=== PATIENT | female | born 1990 | race Caucasian/White ===

== ENCOUNTER 2016-06-16 22:15 | Observation (INO) | payer BC, MEDICAID ==
[2016-06-16 23:39] VITALS: BP 117/72
[2016-06-17] MEDS ORDERED: ONDANSETRON 2MG/ML, 2ML IVPush PRN (00:30)
[2016-06-17] MEDS ORDERED: ONDANSETRON 2MG/ML, 2ML ONE (00:52)
[2016-06-17] MEDS: D5%-LACTATED RINGERS 1,000 ML IV SCH ×2 (01:05→03:30)
[2016-06-17 01:14] LABS: ASPARTATE AMINO TRANSFERASE 13 U/L (15-37); BLOOD UREA NITROGEN 6 mg/dL (7-18)
[2016-06-17] MEDS ORDERED: ONDA4TAB7 PO ×2 (05:21→05:22)
[2016-06-17 06:17] LABS: RAPID INFLUENZA A Negative (Negative); RAPID INFLUENZA B Negative (Negative)
== END 2016-06-17 06:25 | disposition home or self-care (01) ==
LOC: LDOP 22:15 → LDIP 06-17 00:26
PROVIDERS: ADMIT Obstetrics & Gynecology Gynecology; ATTEND Obstetrics & Gynecology Gynecology
DX: O21.9 Vomiting of pregnancy, unspecified (principal); O99.342 Other mental disorders complicating pregnancy, second trimester; F41.9 Anxiety disorder, unspecified; F31.9 Bipolar disorder, unspecified; Z3A.20 20 weeks gestation of pregnancy; Z87.891 Personal history of nicotine dependence
CPT/HCPCS: 36415; 76805; 80053; 81001; 85025; 87086; 87400; 96361; 96374; G0378; J2405; 59025; 96360; 96375; 99211; G0463; J7121

== ENCOUNTER 2016-07-20 00:31 | Emergency (ER) | payer BC, MEDICAID, OTHER ==
[~2016-07-20] VITALS: Ht 170.2 cm; Wt 95.0 kg
[~2016-07-20 00:31] MED LIST: ONDA4TAB7 PO
[2016-07-20 00:33] VITALS: BP 113/75
== END 2016-07-20 02:52 | disposition home or self-care (01) ==
LOC: ED 02:49
DX: O9A.212 Injury, poisoning and certain other consequences of external causes complicating pregnancy, second trimester (principal); S80.02XA Contusion of left knee, initial encounter; S80.01XA Contusion of right knee, initial encounter; S50.12XA Contusion of left forearm, initial encounter; Z3A.26 26 weeks gestation of pregnancy; W01.0XXA Fall on same level from slipping, tripping and stumbling without subsequent striking against object, initial encounter; Y93.89 Activity, other specified; Y92.89 Other specified places as the place of occurrence of the external cause; Y99.0 Civilian activity done for income or pay
CPT/HCPCS: 99284

== ENCOUNTER 2016-08-12 08:29 | Observation (INO) | payer BC, MEDICAID ==
[~2016-08-12] VITALS: Ht 170.2 cm; Wt 99.0 kg
[2016-08-12 09:14] VITALS: BP 115/68
[2016-08-12] MEDS ORDERED: RHOGAM FROM BLOOD BANK 1 NOTE EA IM/IV ONE (09:30)
== END 2016-08-12 13:20 | disposition home or self-care (01) ==
LOC: LDOP 08:29 → LDIP 13:17
PROVIDERS: ADMIT Obstetrics & Gynecology Gynecology; ATTEND Obstetrics & Gynecology Gynecology
DX: O46.93 Antepartum hemorrhage, unspecified, third trimester (principal); Z3A.28 28 weeks gestation of pregnancy
CPT/HCPCS: 36415; 59025; 76815; 85461; 86850; 86900; 89060; 96372; G0378; J2790; Q0114

== ENCOUNTER 2016-08-19 20:26 | Outpatient (CLI) | payer BC, MEDICAID ==
[~2016-08-19] VITALS: Ht 170.2 cm; Wt 100.0 kg
[2016-08-19 20:41] VITALS: BP 114/70
== END 2016-08-19 21:45 | disposition home or self-care (01) ==
LOC: LDOP 20:26
PROVIDERS: ATTEND Obstetrics & Gynecology Gynecology
DX: O26.893 Other specified pregnancy related conditions, third trimester (principal); O99.343 Other mental disorders complicating pregnancy, third trimester; R10.9 Unspecified abdominal pain; R19.7 Diarrhea, unspecified; M54.9 Dorsalgia, unspecified; F32.9 Major depressive disorder, single episode, unspecified; Z3A.30 30 weeks gestation of pregnancy
CPT/HCPCS: 59025; 81001; 87086; 99211; G0463

== ENCOUNTER 2016-10-01 17:43 | Outpatient (CLI) | payer BC, MEDICAID ==
[~2016-10-01] VITALS: Ht 170.2 cm; Wt 100.0 kg
[2016-10-01] MEDS ORDERED: PREN1TAB60 PO (18:00)
[2016-10-01 18:22] VITALS: BP 118/72
[2016-10-01 18:37] LABS: HEMOGLOBIN 12.2 g/dL (11.7-16.4); WHITE BLOOD COUNT 14.2 x10^3/uL (3.4-10)
[2016-10-01 18:47] LABS: ASPARTATE AMINO TRANSFERASE 14 U/L (15-37); BLOOD UREA NITROGEN 6 mg/dL (7-18)
== END 2016-10-01 19:40 | disposition home or self-care (01) ==
LOC: LDOP 17:43
PROVIDERS: ATTEND Obstetrics & Gynecology Gynecology
DX: O26.893 Other specified pregnancy related conditions, third trimester (principal); O21.9 Vomiting of pregnancy, unspecified; O99.343 Other mental disorders complicating pregnancy, third trimester; R51 Headache; R42 Dizziness and giddiness; H53.8 Other visual disturbances; F32.9 Major depressive disorder, single episode, unspecified; Z3A.35 35 weeks gestation of pregnancy
CPT/HCPCS: 36415; 59025; 80053; 81001; 82570; 84156; 84550; 85025; 99211; G0463

== ENCOUNTER 2016-10-08 15:53 | Outpatient (CLI) | payer BC, MEDICAID ==
[~2016-10-08] VITALS: Ht 170.2 cm; Wt 100.5 kg
[~2016-10-08 15:53] MED LIST changes: +PREN1TAB60 PO
[2016-10-08 16:21] VITALS: BP 125/80
== END 2016-10-08 18:00 | disposition home or self-care (01) ==
LOC: LDOP 15:53
PROVIDERS: ATTEND Obstetrics & Gynecology Gynecology
DX: O26.893 Other specified pregnancy related conditions, third trimester (principal); O23.43 Unspecified infection of urinary tract in pregnancy, third trimester; O99.343 Other mental disorders complicating pregnancy, third trimester; F32.9 Major depressive disorder, single episode, unspecified; Z3A.36 36 weeks gestation of pregnancy
CPT/HCPCS: 59025; 81001; 87086; 99211; G0463

== ENCOUNTER 2016-10-19 09:03 | Outpatient (CLI) | payer BC, MEDICAID ==
[2016-10-19] MEDS ORDERED: LIDOCAINE 1%, 20ML ONE (10:23)
[2016-10-19] MEDS ORDERED: CEPH-368 PO (10:44)
== END 2016-10-19 11:31 | disposition home or self-care (01) ==
LOC: LDOP 09:03
PROVIDERS: ATTEND Obstetrics & Gynecology Gynecology
DX: O26.893 Other specified pregnancy related conditions, third trimester (principal); O62.9 Abnormality of forces of labor, unspecified; L02.416 Cutaneous abscess of left lower limb; R10.30 Lower abdominal pain, unspecified; Z3A.38 38 weeks gestation of pregnancy
CPT/HCPCS: 59025; 99211; G0463

== ENCOUNTER 2016-10-26 09:57 | Outpatient (CLI) | payer BC, MEDICAID ==
[~2016-10-26] VITALS: Ht 170.2 cm; Wt 106.8 kg
[~2016-10-26 09:57] MED LIST changes: +CEPH-368 PO
[2016-10-26 10:14] VITALS: BP 117/56
== END 2016-10-26 11:17 | disposition home or self-care (01) ==
LOC: LDOP 09:57
PROVIDERS: ATTEND Obstetrics & Gynecology Gynecology
DX: O42.92 Full-term premature rupture of membranes, unspecified as to length of time between rupture and onset of labor (principal); O99.343 Other mental disorders complicating pregnancy, third trimester; O23.43 Unspecified infection of urinary tract in pregnancy, third trimester; F32.9 Major depressive disorder, single episode, unspecified; Z3A.39 39 weeks gestation of pregnancy
CPT/HCPCS: 59025; 89060; 99211; G0463; Q0114

== ENCOUNTER 2016-10-28 10:09 | Inpatient (IN) | payer BC, MEDICAID ==
[~2016-10-28] VITALS: Ht 170.2 cm; Wt 106.8 kg
[2016-10-28] MEDS ORDERED: MISOPROSTOL 200 MCG TABLET ONE (10:26)
[2016-10-28] MEDS ORDERED: OXYTOCIN 30U/ 0.9% NaCL 500ML 500 ML ONE (10:26)
[2016-10-28] MEDS ORDERED: LIDOCAINE 1%, 20ML ONE (10:26)
[2016-10-28] MEDS ORDERED: OXYTOCIN 30U/ 0.9% NaCL 500ML 500 ML IV ONE (10:26)
[2016-10-28] MEDS ORDERED: NEWBORN KIT ONE (10:26)
[2016-10-28] MEDS ORDERED: FENTANYL PF 100 MCG/2ML IV PRN (10:30)
[2016-10-28] MEDS ORDERED: FENTANYL PF 100 MCG/2ML IVPush PRN (10:30)
[2016-10-28] MEDS ORDERED: TERBUTALINE 1 MG/ML, 1ML SQ PRN (10:30)
[2016-10-28] MEDS: LACTATED RINGERS 1,000 ML IV SCH ×3 (10:42→17:45)
[2016-10-28 10:51] LABS: HEMATOCRIT 37.5 % (34.6-47.8); HEMOGLOBIN 12.9 g/dL (11.7-16.4); WHITE BLOOD COUNT 14.3 x10^3/uL (3.4-10)
[2016-10-28 10:56] VITALS: BP 124/75
[2016-10-28] MEDS ORDERED: PLEASE ENTER HEIGHT AND WEIGHT MC SCH (11:00)
[2016-10-28] MEDS ORDERED: BUPIVACAINE/PF 0.25% ONE (11:26)
[2016-10-28] MEDS ORDERED: FENTANYL/BUPIV./NS/PF 250 ML EPIDCONT ONE (11:27)
[2016-10-28] MEDS ORDERED: FENTANYL/BUPIV./NS/PF 250 ML EPIDCONT SCH ×2 (11:28)
[2016-10-28] MEDS ORDERED: LACTATED RINGERS 1,000 ML IV SCH ×2 (11:28)
[2016-10-28] MEDS ORDERED: EPHEDRINE 50 MG/ML, 1ML IVPush PRN ×2 (11:30)
[2016-10-28] MEDS ORDERED: NALOXONE 0.4 MG/ML, 1ML IVPush PRN ×2 (11:30)
[2016-10-28] MEDS ORDERED: LACTATED RINGERS 1,000 ML IVBOLUS PRN ×2 (11:30)
[2016-10-28] MEDS ORDERED: FENTANYL PF 100 MCG/2ML ONE (11:33)
[2016-10-28] MEDS ORDERED: BUPIVACAINE 0.25% ONE (11:33)
[2016-10-28] MEDS ORDERED: OXYTOCIN 30U/ 0.9% NaCL 500ML 500 ML IV PRN (14:00)
[2016-10-28] MEDS ORDERED: MISOPROSTOL 200 MCG TABLET PR PRN (15:00)
[2016-10-28] MEDS ORDERED: MEASLES,MUMPS&RUBELLA VACC/PF 0.5 ML SQ PRN (15:00)
[2016-10-28] MEDS ORDERED: DOCUSATE 100 MG CAPSULE PO PRN (15:00)
[2016-10-28] MEDS ORDERED: ONDANSETRON 2MG/ML, 2ML IV PRN (15:00)
[2016-10-28] MEDS ORDERED: OXYcodone/APAP 5/325MG TABLET PO PRN ×2 (15:00)
[2016-10-28] MEDS ORDERED: MAGNESIUM HYDROXIDE 8%, 30ML UDC PO PRN (15:00)
[2016-10-28] MEDS ORDERED: DIPH,PERTUSS(ACELL),TET VAC/PF NC IM-VACC PRN (15:00)
[2016-10-28] MEDS ORDERED: RHOGAM FROM BLOOD BANK 1 NOTE EA IM/IV ONE (15:00)
[2016-10-28] MEDS ORDERED: ACETAMINOPHEN 325 MG TABLET PO PRN ×2 (15:00)
[2016-10-28] MEDS ORDERED: CALCIUM CARBONATE 500 MG TAB.CHEW PO PRN (15:00)
[2016-10-28] MEDS: OXYTOCIN 30U/ 0.9% NaCL 500ML 500 ML IV SCH (15:00)
[2016-10-28 18:00] VITALS: BP 115/72
[2016-10-28 19:30] VITALS: BP 111/69
[2016-10-28] MEDS: IBUPROFEN 600 MG TABLET PO PRN (21:35)
[2016-10-29 00:40] VITALS: BP 110/66
[2016-10-29] MEDS: OXYTOCIN 30U/ 0.9% NaCL 500ML 500 ML IV SCH (01:00)
[2016-10-29 01:13] LABS: HEMATOCRIT 36.1 % (34.6-47.8); HEMOGLOBIN 12.4 g/dL (11.7-16.4); WHITE BLOOD COUNT 17.5 x10^3/uL (3.4-10)
[2016-10-29 04:10] VITALS: BP 99/61
[2016-10-29] MEDS: IBUPROFEN 600 MG TABLET PO PRN ×3 (04:16→17:13)
[2016-10-29 07:18] VITALS: BP 115/82
[2016-10-29] MEDS ORDERED: PRENATAL VIT/IRON/FA 1 EACH TABLET PO SCH (09:00)
[2016-10-29] MEDS ORDERED: IBUP-1222 PO (14:17)
== END 2016-10-29 18:11 | disposition home or self-care (01) | DRG 775 ==
LOC: LDOP 10:09 → LDIP 10:24 → 2NW 18:02
PROVIDERS: ADMIT Obstetrics & Gynecology Gynecology; ATTEND Obstetrics & Gynecology Gynecology
PROC: 10E0XZZ Delivery of Products of Conception, External Approach (ICD-10-PCS; principal; 2016-10-28)
PROC: 3E0S3CZ (ICD-10-PCS; 2016-10-28)
PROC: 00HU33Z Insertion of Infusion Device into Spinal Canal, Percutaneous Approach (ICD-10-PCS; 2016-10-28)
PROC: 0HQ9XZZ Repair Perineum Skin, External Approach (ICD-10-PCS; 2016-10-28)
DX: O36.8130 Decreased fetal movements, third trimester, not applicable or unspecified (principal); Z37.0 Single live birth; Z3A.39 39 weeks gestation of pregnancy; O70.0 First degree perineal laceration during delivery
CPT/HCPCS: 36415; 82803; 85025; 85461; 86850; 86900; J2790; J3010; J3490; J2590; J7120

== ENCOUNTER 2017-09-17 13:21 | Emergency (ER) | payer BC, MEDICAID ==
[~2017-09-17] VITALS: Ht 167.6 cm; Wt 103.0 kg
[~2017-09-17 13:21] MED LIST changes: +IBUP-1222 PO
[2017-09-17 13:22] VITALS: BP 122/84
[2017-09-17 14:18] LABS: BASOPHILS % (AUTO) 1 % (0-1); EOSINOPHILS # (AUTO) 0.05 x10^3/uL (0-0.4); EOSINOPHILS % (AUTO) 1 % (1-7); LYMPHOCYTES # (AUTO) 3.21 x10^3/uL (1-3.4); LYMPHOCYTES % (AUTO) 30 % (22-44); MD NO; MEAN CORPUSCULAR HEMOGLOBIN 30.9 pg (27.0-34.8); MEAN CORPUSCULAR HGB CONC 34.2 g/dL (32.4-35.8); MEAN CORPUSCULAR VOLUME 90.3 fL (80-100); MONOCYTES # (AUTO) 0.76 x10^3/uL (0.2-0.8); MONOCYTES % (AUTO) 7 % (2-9); NEUTROPHILS # (AUTO) 6.64 x10^3/uL (1.8-6.8); NEUTROPHILS % (AUTO) 62 % (42-75); PLATELET COUNT 251 x10^3/uL (130-400); RED BLOOD COUNT 4.62 x10^6/uL (3.82-5.3); RED CELL DISTRIBUTION WIDTH 14.8 % (9.6-15.2)
[2017-09-17 14:26] LABS: CULTURE INDICATED? YES; MICROSCOPIC INDICATED
[2017-09-17 14:29] LABS: ALBUMIN 3.8 g/dL (3.4-5.0); ANION GAP 7 mmol/L (5-15); CALCIUM 8.8 mg/dL (8.5-10.1); CHLORIDE 109 mmol/L (98-107); CREATININE 0.74 mg/dL (0.55-1.02)
== END 2017-09-17 15:46 | disposition home or self-care (01) ==
LOC: ED 15:40
DX: O23.11 Infections of bladder in pregnancy, first trimester (principal); O20.9 Hemorrhage in early pregnancy, unspecified; Z32.01 Encounter for pregnancy test, result positive; Z3A.01 Less than 8 weeks gestation of pregnancy
CPT/HCPCS: 36415; 76801; 80048; 81001; 82040; 84702; 85025; 86850; 86900; 87086; 99285; J2790

== ENCOUNTER 2017-12-21 07:13 | Outpatient (CLI) | payer BC, MEDICAID ==
[~2017-12-21] VITALS: Ht 170.2 cm; Wt 105.9 kg
[2017-12-21 07:10] VITALS: BP 103/56
[2017-12-21 08:18] LABS: MICROSCOPIC INDICATED
[2017-12-21] MEDS ORDERED: NITROFURANTOIN (MACROBID) 100 MG CAPSULE ONE (08:44)
[2017-12-21] MEDS ORDERED: NITROFURANTOIN (MACROBID) 100 MG CAPSULE PO SCH (09:00)
[2017-12-21] MEDS ORDERED: NITR100C56 PO (09:14)
== END 2017-12-21 11:10 | disposition home or self-care (01) ==
LOC: LDOP 07:13
PROVIDERS: ATTEND Obstetrics & Gynecology
DX: O46.92 Antepartum hemorrhage, unspecified, second trimester (principal); Z3A.21 21 weeks gestation of pregnancy
CPT/HCPCS: 36415; 59025; 76815; 81001; 85461; 86850; 86900; 87086; 96372; 99211; J2790; G0463

== ENCOUNTER 2018-07-21 17:47 | Observation (INO) | payer MEDICAID ==
[~2018-07-21] VITALS: Ht 170.2 cm; Wt 122.6 kg
[~2018-07-21 17:47] MED LIST changes: +NITR100C56 PO
[2018-07-21] MEDS ORDERED: ACETAMINOPHEN 500 MG TABLET PO ONE (18:00)
[2018-07-21] MEDS ORDERED: SODIUM CHLORIDE FLUSH 10ML SYR IVF ONE (18:00)
[2018-07-21] MEDS ORDERED: IBUPROFEN 800 MG TABLET PO ONE (18:00)
[2018-07-21] MEDS ORDERED: SODIUM CHLORIDE 0.9% 1,000ML IVBOLUS ONE ×2 (18:00→19:00)
--- NOTE | 2018-07-21 18:05 | NUR ---
pt to XR
[2018-07-21] MEDS ORDERED: ACETAMINOPHEN 500 MG TABLET ONE ×2 (18:07→18:08)
[2018-07-21] MEDS ORDERED: IBUPROFEN 800 MG TABLET ONE (18:07)
--- NOTE | 2018-07-21 18:09 | NUR ---
pt returned from XR, pt upright on gurney awake & comfortable, watching TV, responds approp to staff, NAD, comfort measures provided, family at BS, call light within reach.
[2018-07-21 18:49] LABS: MEAN CORPUSCULAR HEMOGLOBIN 28.5 pg (27.0-34.8); MEAN CORPUSCULAR HGB CONC 33.6 g/dL (32.4-35.8); PLATELET COUNT 277 x10^3/uL (130-400); RED BLOOD COUNT 4.55 x10^6/uL (3.82-5.3)
[2018-07-21 19:02] LABS: ALBUMIN 3.5 g/dL (3.4-5.0); ANION GAP 7 mmol/L (5-15); CALCIUM 8.5 mg/dL (8.5-10.1); CHLORIDE 110 mmol/L (98-107); CREATININE 0.83 mg/dL (0.55-1.02)
[2018-07-21 19:06] LABS: ALANINE AMINOTRANSFERASE 17 U/L (12-78); ALKALINE PHOSPHATASE 149 U/L (45-117); BILIRUBIN,TOTAL 0.4 mg/dL (0.2-1.0); TOTAL PROTEIN 7.7 g/dL (6.4-8.2)
--- NOTE | 2018-07-21 19:10 | NUR ---
report given to Michelle
--- NOTE | 2018-07-21 19:13 | NUR ---
VS improved. Encouraged to provided UA. No other needs at this time.
[2018-07-21 19:17] LABS: MD YES
[2018-07-21 19:26] LABS: <RBC MORPHOLOGY> NORMAL; BAND#(MANUAL) 0.65 x10^3/uL; BANDS%(MANUAL) 3 % (0-7); LYMPHS% (MANUAL) 20 % (22-44); MONOS#(MANUAL) 1.29 x10^3/uL (0.3-2.7); MONOS% (MANUAL) 6 % (2-9); SEG#(MANUAL) 15.27 x10^3/uL (1.8-6.8); SEGS% (MANUAL) 71 % (42-75)
[2018-07-21 19:27] LABS: <PLATELET ESTIMATE> ADEQUATE; <PLT MORPHOLOGY> NORMAL PLT MORPH
[2018-07-21 19:28] LABS: BASOPHILS # (AUTO) 0.08 x10^3/uL (0-0.1); BASOPHILS % (AUTO) 0 % (0-1); EOSINOPHILS # (AUTO) 0.04 x10^3/uL (0-0.4); EOSINOPHILS % (AUTO) 0 % (1-7); LYMPHOCYTES # (AUTO) 3.18 x10^3/uL (1-3.4); LYMPHOCYTES % (AUTO) 15 % (22-44); MONOCYTES # (AUTO) 1.68 x10^3/uL (0.2-0.8); MONOCYTES % (AUTO) 8 % (2-9); NEUTROPHILS # (AUTO) 16.47 x10^3/uL (1.8-6.8); NEUTROPHILS % (AUTO) 77 % (42-75)
--- NOTE | 2018-07-21 20:03 | NUR ---
Ambulated with a steady gait to the restroom. No other needs.
[2018-07-21 20:13] LABS: MICROSCOPIC AUTO
[2018-07-21 20:14] LABS: CULTURE INDICATED? YES
[2018-07-21] MEDS ORDERED: CEFTRIAXONE PMX 1GM/50ML 50 ML ONE (21:06)
--- NOTE | 2018-07-21 21:20 | NUR ---
MD at bedside discussing POC.
[2018-07-21] MEDS ORDERED: CEFTRIAXONE PMX 1GM/50ML 50 ML IV ONE (21:30)
--- NOTE | 2018-07-21 21:50 | NUR ---
Report to Trish RN
--- NOTE | 2018-07-21 21:59 | NUR ---
PT TO BE ADMITTED. PT RESTING CALMLY IN BED. NO STATED NEEDS AT THIS TIME. WILL CONTINUE TO MONITOR.
--- NOTE | 2018-07-21 22:13 | NUR ---
REPORT TO BOGDAN GILL FOR ROOM [id number].
--- NOTE | 2018-07-21 22:40 | NUR ---
REPORT TO RIKI GILL FOR ROOM [id number]
[2018-07-21 23:30] VITALS: BP 103/66
[2018-07-21] MEDS: SODIUM CHLORIDE 0.9% 1,000 ML IV SCH (23:34)
[2018-07-22 06:17] LABS: BASOPHILS # (AUTO) 0.07 x10^3/uL (0-0.1); BASOPHILS % (AUTO) 1 % (0-1); EOSINOPHILS # (AUTO) 0.09 x10^3/uL (0-0.4); EOSINOPHILS % (AUTO) 1 % (1-7); LYMPHOCYTES # (AUTO) 3.55 x10^3/uL (1-3.4); LYMPHOCYTES % (AUTO) 26 % (22-44); MD NO; MEAN CORPUSCULAR HEMOGLOBIN 28.3 pg (27.0-34.8); MEAN CORPUSCULAR HGB CONC 32.7 g/dL (32.4-35.8); MEAN CORPUSCULAR VOLUME 86.5 fL (80-100); MEAN PLATELET VOLUME 8.5 fL (7.4-10.4); MONOCYTES # (AUTO) 1.33 x10^3/uL (0.2-0.8); MONOCYTES % (AUTO) 10 % (2-9); NEUTROPHILS # (AUTO) 8.81 x10^3/uL (1.8-6.8); NEUTROPHILS % (AUTO) 64 % (42-75); PLATELET COUNT 249 x10^3/uL (130-400); RED BLOOD COUNT 4.41 x10^6/uL (3.82-5.3); RED CELL DISTRIBUTION WIDTH 15.6 % (9.6-15.2)
[2018-07-22 06:24] LABS: ANION GAP 6 mmol/L (5-15); CALCIUM 8.5 mg/dL (8.5-10.1); CHLORIDE 115 mmol/L (98-107)
[2018-07-22 06:34] VITALS: BP 94/62
[2018-07-22 06:35] LABS: CREATININE 0.69 mg/dL (0.55-1.02)
[2018-07-22] MEDS: SODIUM CHLORIDE 0.9% 1,000 ML IV SCH ×2 (08:27→20:56)
[2018-07-22] MEDS: ACETAMINOPHEN 325 MG TABLET PO PRN ×3 (08:37→19:08)
[2018-07-22] MEDS: CEFTRIAXONE PMX 2GM/50ML 50 ML IV SCH (12:29)
[2018-07-22 14:43] VITALS: BP 104/68
[2018-07-22 19:57] VITALS: BP 107/71
[2018-07-23] MEDS: ACETAMINOPHEN 325 MG TABLET PO PRN (00:12)
[2018-07-23 00:35] VITALS: BP 99/68
[2018-07-23 06:30] LABS: BASOPHILS # (AUTO) 0.03 x10^3/uL (0-0.1); BASOPHILS % (AUTO) 0 % (0-1); EOSINOPHILS # (AUTO) 0.16 x10^3/uL (0-0.4); EOSINOPHILS % (AUTO) 2 % (1-7); LYMPHOCYTES # (AUTO) 3.35 x10^3/uL (1-3.4); LYMPHOCYTES % (AUTO) 35 % (22-44); MD NO; MEAN CORPUSCULAR HGB CONC 32.7 g/dL (32.4-35.8); MEAN CORPUSCULAR VOLUME 85.6 fL (80-100); MEAN PLATELET VOLUME 7.5 fL (7.4-10.4); MONOCYTES # (AUTO) 0.64 x10^3/uL (0.2-0.8); MONOCYTES % (AUTO) 7 % (2-9); NEUTROPHILS # (AUTO) 5.42 x10^3/uL (1.8-6.8); NEUTROPHILS % (AUTO) 57 % (42-75); PLATELET COUNT 271 x10^3/uL (130-400); RED BLOOD COUNT 4.27 x10^6/uL (3.82-5.3); RED CELL DISTRIBUTION WIDTH 15.9 % (9.6-15.2)
[2018-07-23 06:41] LABS: CHLORIDE 111 mmol/L (98-107)
[2018-07-23 06:47] LABS: ALANINE AMINOTRANSFERASE 14 U/L (12-78); ALBUMIN 3.2 g/dL (3.4-5.0); ALKALINE PHOSPHATASE 126 U/L (45-117); ANION GAP 7 mmol/L (5-15); BILIRUBIN,TOTAL 0.3 mg/dL (0.2-1.0); CALCIUM 9.1 mg/dL (8.5-10.1); CREATININE 0.73 mg/dL (0.55-1.02); TOTAL PROTEIN 7.2 g/dL (6.4-8.2)
[2018-07-23 07:06] VITALS: BP 105/77
[2018-07-23] MEDS: SODIUM CHLORIDE 0.9% 1,000 ML IV SCH (08:37)
[2018-07-23] MEDS: CEFTRIAXONE PMX 2GM/50ML 50 ML IV SCH (11:29)
[2018-07-23] MEDS ORDERED: CEFD300C37 PO (11:31)
== END 2018-07-23 14:40 | disposition home or self-care (01) ==
LOC: ED 20:41 → EDIP 21:54 → INTOOBSV 21:54 → 4EST 23:37
PROVIDERS: ADMIT Internal Medicine; ATTEND Internal Medicine
DX: A41.9 Sepsis, unspecified organism (principal); K59.00 Constipation, unspecified; N30.90 Cystitis, unspecified without hematuria; Z91.013 Allergy to seafood; Z91.041 Radiographic dye allergy status; Z79.899 Other long term (current) drug therapy; Z91.040 Latex allergy status; Z91.048 Other nonmedicinal substance allergy status
CPT/HCPCS: 36415; 71046; 76770; 80048; 80053; 81001; 81025; 83605; 83735; 84100; 84145; 84443; 84702; 85025; 87040; 87086; 93005; 96361; 96365; 96366; 99291; G0378; J0696; J7030